=== PATIENT | male | born 1970 | race Hispanic/Latino ===

== ENCOUNTER 2017-12-29 23:28 | Emergency (ER) | payer SELFPAY ==
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
== END 2017-12-30 06:42 | disposition home or self-care (01) ==
LOC: C.ER 23:28
DX: F10.10 Alcohol abuse, uncomplicated (principal); Y90.9 Presence of alcohol in blood, level not specified